=== PATIENT | female | born 1965 | race Asian ===

== ENCOUNTER 2018-02-06 06:18 | Day surgery (SDC) | payer OTHER ==
[~2018-02-06] VITALS: Ht 152.4 cm; Wt 68.0 kg
[2018-02-06 06:55] VITALS: BP 150/83
[2018-02-06 11:55] VITALS: BP 145/97
== END 2018-02-06 10:30 | disposition home or self-care (01) ==
LOC: GI 06:18 → OR 07:30 → GI 10:30
PROVIDERS: Internal Medicine Gastroenterology
PROC: 0DB68ZZ Excision of Stomach, Via Natural or Artificial Opening Endoscopic (ICD-10-PCS; principal; 2018-02-06 07:30)
PROC: 0DBL8ZZ Excision of Transverse Colon, Via Natural or Artificial Opening Endoscopic (ICD-10-PCS; 2018-02-06 07:30)
DX: R10.13 Epigastric pain (principal); K63.5 Polyp of colon; Z12.11 Encounter for screening for malignant neoplasm of colon
CPT/HCPCS: 43235; 45378; J1200; J1610; J2250; J2310; J3010; J3490